=== PATIENT | female | born 1945 | race Caucasian/White ===

== ENCOUNTER → 2017-06-27 | Outpatient (CLI) | payer MEDICARE ==
[~2017-06-27] MED LIST: CYCL30DR OU; LOSA100T29 PO; LOVA20TA3 PO; PANT40TA25 PO; SITA50TA PO
[2017-06-27 09:48] LABS: INR 0.89 (0.85-1.15); PARTIAL THROMBOPLASTIN TIME 22.9 SEC (26.3-35.5); PROTHROMBIN TIME 9.4 SEC (9.6-11.6)
== END | disposition home or self-care (01) ==
LOC: RAH 09:01
PROVIDERS: ATTEND Family Medicine
DX: E04.2 Nontoxic multinodular goiter (principal); I10 Essential (primary) hypertension; K21.9 Gastro-esophageal reflux disease without esophagitis; E78.2 Mixed hyperlipidemia; E11.36 Type 2 diabetes mellitus with diabetic cataract; Z79.01 Long term (current) use of anticoagulants
CPT/HCPCS: 36415; 60100; 76942; 85610; 85730; 88173; 88305; A4215